=== PATIENT | female | born 1975 | race Caucasian/White ===

== ENCOUNTER 2019-04-27 09:48 | Day surgery (SDC) | payer OTHER ==
[~2019-04-27 09:48] MED LIST: BUPIVACAINE LIPOSOME/PF 266 MG/20 ML VIAL INFIL; SOD CHLORIDE 0.9% 1,000 ML IV
[2019-04-27] MEDS: GENTAMICIN 80 MG INJ (10:16)
[2019-04-27] MEDS: POLYMYXIN/BACITRACIN 1L IRRIG (10:17)
[2019-04-27] MEDS ORDERED: LIDOCAINE 2% (SDV) 5 ML INJ (10:52)
[2019-04-27] MEDS ORDERED: PROPOFOL 20 ML (10:52)
[2019-04-27] MEDS ORDERED: CEFAZOLIN 1 GM INJ (10:52)
[2019-04-27] MEDS ORDERED: METOCLOPRAMIDE 10 MG INJ (10:53)
[2019-04-27] MEDS ORDERED: MEPERIDINE 100 MG INJ (10:53)
[2019-04-27] MEDS ORDERED: ONDANSETRON 4 MG INJ (10:53)
[2019-04-27] MEDS ORDERED: ONDANSETRON 4 MG INJ IV (11:00)
[2019-04-27] MEDS ORDERED: HYDROCODONE/APAP (5/325) TAB PO (11:00)
[2019-04-27] MEDS ORDERED: morphine 2 MG INJ IV (11:00)
[2019-04-27] MEDS ORDERED: ACETAMINOPHEN 325 MG TAB PO (11:00)
[2019-04-27] MEDS ORDERED: hydrALAzine 20 MG INJ IV (11:30)
[2019-04-27] MEDS ORDERED: OXYCODONE/ACETAMINOPHEN (5/325) TAB PO (11:30)
[2019-04-27] MEDS ORDERED: HYDROmorphONE 1 MG/5 ML IV SYRINGE IV (11:30)
[2019-04-27] MEDS ORDERED: METOCLOPRAMIDE 10 MG INJ IV (11:30)
[2019-04-27] MEDS ORDERED: MEPERIDINE 25 MG INJ IV (11:30)
[2019-04-27] MEDS ORDERED: FENTAnyl 50 MCG/ML VIAL IV ×3 (11:30)
[2019-04-27] MEDS ORDERED: MIDAZOLAM 1 MG/ML 2 ML INJ IV (11:30)
[2019-04-27] MEDS ORDERED: LABETALOL HCL 20MG INJ IV (11:30)
[2019-04-27] MEDS ORDERED: DIPHENHYDRAMINE 50 MG INJ IV (11:30)
[2019-04-27] MEDS ORDERED: EPHEDrine 25 MG/5 ML SYG (11:57)
[2019-04-27] MEDS: EXPAREL NOTE (BUPIVICAINE LIPOSOMAL) XX (12:21)
[2019-04-27] MEDS: EPINEPHrine 1 MG INJ (12:21)
[2019-04-27] MEDS: BUPIVACAINE 0.25%/EPI (SDV) 30 ML INJ (12:53)
[2019-04-27] MEDS: ONDANSETRON 4 MG INJ IV (13:28)
[2019-04-27] MEDS: HYDROmorphONE 1 MG/5 ML IV SYRINGE IV ×2 (13:28→14:04)
[2019-04-27] MEDS: OXYCODONE/ACETAMINOPHEN (5/325) TAB PO (13:28)
[2019-04-27] MEDS: EPHEDrine 25 MG/5 ML SYG IV (13:40)
== END 2019-04-27 15:37 | disposition home or self-care (01) ==
LOC: SDS 09:48
DX: N65.0 Deformity of reconstructed breast (principal); C50.111 Malignant neoplasm of central portion of right female breast; E11.9 Type 2 diabetes mellitus without complications; I10 Essential (primary) hypertension; E78.5 Hyperlipidemia, unspecified; D24.2 Benign neoplasm of left breast; N65.1 Disproportion of reconstructed breast; M54.9 Dorsalgia, unspecified
CPT/HCPCS: 19318; 88305